=== PATIENT | male | born 1955 ===

== ENCOUNTER 2024-03-31 12:46 | Outpatient (AMB) | payer MEDICARE, OTHER, SELFPAY ==
--- NOTE | 2024-03-31 12:45 | MHC.OFFVIS ---
Intake Visit Reasons: lumbar radiculopathy HPI HPI lumbar radiculopathy: Details: 68-year-old male presenting with 2 month history of increasing lumbar radicular symptoms. Pain is described as greater than 6/10 in intensity and originates in the lower back, radiates down the right thigh and posterolateral aspect of the right calf. He has been engaged in physical therapy and has been taking Vicodin. So far he has not felt that the physical therapy has been very helpful. He is interested interventional therapies for his pain. [facility] Medical History (Updated 03/31/24 @ 12:57 by David Enciso MD) Lumbar radiculopathy Back pain Telehealth Telehealth Telehealth Platform: Telephone Location of provider rendering services: practice address Location of patient: address on file Patient Identification confirmed using: Name, : Yes Telehealth method: voice only Patient verbally consented to treatment: Yes Patient verbally consented to billing insurance company: Yes Minutes spent on Phone/Video with Pt.: 10 Results Reviewed Results Reviewed: Exam: MR Lumbar Spine (C-) CPT 41799 Room Description: [facility] 3T HISTORY: Back pain. Right lumbar radiculitis. TECHNIQUE: Multiplanar multisequence MRI of the lumbar spine without contrast. COMPARISON: 06/30/2022 FINDINGS: Multiple images are degraded by patient motion which diminishes detail, and interpretation was made in light of this technical confine. There is a mild rightward curvature of the lumbar spine. Straightening of the lumbar spine is noted on the sagittal images. No significant subluxation. The lumbar vertebral bodies are normal in height. No spondylolysis. 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 Loss of disc space height at L4-L5 and L5-S1 is again noted. Schmorl's nodes extend through the inferior endplates of L4 and L5, and there is Modic type I endplate change at L5-S1. Marginal osteophytes are also present at L4-L5 and L5-S1. The conus is poorly delineated due to motion. Subtle hazy STIR hyperintensity of the posterior paraspinal musculature. At T11-T12, there is a concentric disc-osteophyte complex with facet arthrosis. Mild central canal narrowing. Detail is degraded by motion. L1-L2: Concentric disc-osteophyte complex, facet arthrosis, and ligamentum flavum infolding. Mild acquired central canal narrowing. Moderate narrowing of the thecal sac in conjunction with epidural lipomatosis. No significant foraminal narrowing. L2-L3: Mild facet arthrosis and ligamentum flavum infolding. Subtle left central canal and left subarticular recess narrowing. No significant foraminal narrowing. L3-L4: Mild concentric disc bulge, facet arthrosis, and ligamentum flavum infolding. Minimal central canal narrowing. Minimal foraminal narrowing. L4-L5: Concentric disc-osteophyte complex and mild facet arthrosis. Minimal central canal narrowing. Mild foraminal narrowing (left greater than right). L5-S1: A concentric disc-osteophyte complex is slightly more pronounced posteriorly on the right. Right subarticular recess narrowing is more pronounced with crowding of and possible compression of the right S1 nerve roots. Mild foraminal narrowing. IMPRESSION: Degenerative changes of the lumbar spine superimposed upon a congenitally-narrowed spinal canal. Detail is degraded by motion. L5-S1, right subarticular recess narrowing is more pronounced with crowding of and possible compression of the right S1 nerve roots. This can be correlated with the patient's symptoms and neurological examination. Assessment & Plan Assessment & Plan (1) Lumbar radiculopathy: Code(s): M54.16 - Radiculopathy, lumbar region Category: Medical Plan 68-year-old male with history, physical exam and imaging findings consistent with right S1 radiculopathy with compression of the S1 nerve roots at the L5-S1 disc space. This has not responded to trial of conservative measures including oral medications and physical therapy. I offered him a right L5 TFESI as a next step in interventional management for his symptoms. Patient is in agreement with the plan. Justification for interventional therapy: Patient with average pain > 6/10 Patient has exhausted conservative therapy including physical therapy and oral medications. Coding Level of Care Code Tele New Pt Level 3 (39381) Diagnoses Lumbar radiculopathy M54.16
== END 2024-03-31 12:47 | disposition home or self-care (01) ==
LOC: HO.PMCPRC 12:46
PROVIDERS: PCP Nurse Practitioner Gerontology; Visit Provider Internal Medicine
DX: M54.16 Radiculopathy, lumbar region (principal)
CPT/HCPCS: 99441

== ENCOUNTER → 2024-03-31 12:46 | Outpatient (BNVA) | payer MEDICARE, OTHER, SELFPAY | PROVIDERS: PCP Nurse Practitioner Gerontology; Visit Provider Internal Medicine ==

== ENCOUNTER 2024-05-12 08:57 | Outpatient (REF) | payer MEDICARE, OTHER, SELFPAY | END 2024-05-12 08:58 | disposition home or self-care (01) | LOC: CF 08:57 | PROVIDERS: Visit Provider Internal Medicine | DX: M54.16 Radiculopathy, lumbar region (principal) | CPT/HCPCS: 64483; J1100; J2003; Q9967 ==

== ENCOUNTER 2024-05-12 11:32 | Outpatient (AMB) | payer MEDICARE, OTHER, SELFPAY ==
[2024-05-12 11:45] VITALS: BP 154/84; PULSE 98; RESP 16; O2SAT 99
--- NOTE | 2024-05-12 11:58 | MHC.OFFVIS ---
Vital Signs 05/12/24 11:45 05/12/24 12:03 BP 154/84 H 162/85 H Blood Pressure Location Lt brachial Lt brachial Position Sitting Sitting Respiration 16 17 Pulse 98 87 Pulse Source Pulse Oximeter Pulse Oximeter Pulse Oximetry (%) 99 97 Oxygen Delivery Method Room Air Room Air Comment Pre-op Post-op Intake Visit Reasons: Right L5 TFESI HPI HPI Right L5 TFESI: Details: Patient presents for scheduled procedure. Denies any recent cough, cold, infection, fever or other significant changes in medical history since last office visit. [facility] Medical History (Updated 03/31/24 @ 12:57 by David Enciso MD) Lumbar radiculopathy Back pain Office Procedures Details: Transforaminal epidural steroid injection, Right L5/S1 After obtaining written consent, pre-procedure blood pressure and heart rate were stable and recorded in the nursing record. The patient was placed in the prone position on the fluoroscopy table. The lumbosacral area was prepped with chloraprep, allowed to dry and draped in sterile fashion. Using fluoroscopy, the skin overlying our target was anesthetized with 0.5% lidocaine. A 22 gauge 3.5 inch spinal needle was advanced to the safe triangle in the upper pole of the right L5 foramen. No paresthesias were elicited with needle placement and aspiration was negative for blood and CSF. Correct needle position was confirmed with approximately 1 ml contrast dye (Omnipaque 180 mg/ml) injected under real-time fluoroscopy. No evidence of vascular or intrathecal uptake was seen and there was both epidural and peripheral spread of the contrast agent. 10 mg dexamethasone plus 1 ml containing 0.5% lidocaine was slowly injected. The needle was flushed and removed. the same procedure was repeated for the remaining levels. The skin was cleansed and a sterile bandages were applied. The patient tolerated the procedure well and no complications were encountered. Following the procedure the patient's vital signs were stable. The patient was discharged home in good condition with post-procedural instructions. Time Out: Immediately prior to the procedure, the following was verbally confirmed that there is a signed consent form and that the correct patient, planned procedure, site and side are consistent with documentation and that necessary equipment and/or blood products are available prior to the start of the case. Complications: none EBL: <5 cc 54757 - Lumbar/Sacral Procedure code (CPT) selection complete Assessment & Plan Assessment & Plan (1) Lumbar radiculopathy: Code(s): M54.16 - Radiculopathy, lumbar region Category: Medical Plan Patient is status post right L5-S1 TFESI. Patient tolerated procedure well and was discharged home in stable condition with discharge instructions. All questions were answered. We will follow-up via telephone or in clinic to assess response to therapy. A follow-up appointment was made during today's visit. Orders: Orders FL guidance in treatment room Today M54.16 - Radiculopathy, lumbar region Coding Level of Care Code Procedure Only Diagnoses Lumbar radiculopathy M54.16 CPT Codes Transforaminal Epidural Steroid Inj - TESI 3: 97235 - Lumbar/Sacral ([id number])
[2024-05-12 12:03] VITALS: BP 162/85; PULSE 87; RESP 17; O2SAT 97
== END 2024-05-12 12:02 | disposition home or self-care (01) ==
LOC: HO.PMCPRC 11:32
PROVIDERS: PCP Nurse Practitioner Gerontology; Visit Provider Internal Medicine
DX: M54.16 Radiculopathy, lumbar region (principal)
CPT/HCPCS: 64483

== ENCOUNTER 2024-06-17 09:04 | Outpatient (AMB) | payer MEDICARE, OTHER, SELFPAY ==
--- NOTE | 2024-06-17 09:05 | MHC.OFFVIS ---
Vital Signs 06/17/24 09:07 Height 5 ft 10 in Weight 172 lb BMI 24.7 BP 149/76 H Blood Pressure Location Lt brachial Position Sitting Respiration 16 Pulse 77 Pulse Source Pulse Oximeter Pulse Oximetry (%) 98 Oxygen Delivery Method Room Air Intake Visit Reasons: s/p right L5 TFESI Allergies No Known Allergies Allergy (Verified 06/17/24 09:08) Medication List - Last Reconciled 06/17/24 by Karen Swanson LPN HPI HPI s/p right L5 TFESI: Details: 68-year-old male who presents today to the office for a status post right L5 transforaminal epidural steroid injection. The patient reports 75-80% relief following the procedure. He has been doing stretching exercises at home. He states that his pain is manageable. He has only tried inversion table once but unable to continue due to time restrictions. He states that he has been using [employer] for his back pain, which is working well. He has a hot tub at home. Past procedures 05/12/24: Transforaminal epidural steroid injection, Right L5/S1: 75-80% relief. [facility] Medical History (Updated 03/31/24 @ 12:57 by David Enciso MD) Lumbar radiculopathy Back pain Review of Systems Const All systems reviewed & are unremarkable except as noted in HPI and below Physical Exam Vital Signs: Last Vital Signs Pulse 77 06/17/24 09:07 Resp 16 06/17/24 09:07 BP 149/76 H 06/17/24 09:07 Pulse Ox 98 06/17/24 09:07 Oxygen Delivery Method Room Air 06/17/24 09:07 BMI result Body Mass Index 24.7 General: Appears afebrile. Alert and oriented. Mood and affect appropriate. Follows and participates in conversation appropriately. Respiratory effort is unlabored. Able to transition from sit to stand unassisted. Ambulates with bilaterally normal heel strike and toe off. Results Reviewed Results Reviewed: No imaging is available for review. Assessment & Plan Assessment & Plan (1) Lumbar radiculopathy: Code(s): M54.16 - Radiculopathy, lumbar region Category: Medical Plan The patient will continue home exercises including stretching and swimming. Follow up as needed, if and when symptoms get worse again. Scribed for Dr. Julian by Himanshu Emily, caregivers non medical, on 06/17/2024. I, Dr. Julian, have personally reviewed and agree with the information entered by the scribe. Coding Level of Care Code Est Pt Level 3 (33489) Diagnoses Lumbar radiculopathy M54.16
[2024-06-17 09:07] VITALS: BP 149/76; PULSE 77; RESP 16; O2SAT 98; BMI 24.7
== END 2024-06-17 09:22 | disposition home or self-care (01) ==
PROVIDERS: PCP Nurse Practitioner Gerontology; Visit Provider Internal Medicine
DX: M54.16 Radiculopathy, lumbar region (principal)
CPT/HCPCS: 99213

== ENCOUNTER → 2024-06-17 09:04 | Outpatient (BNVA) | payer MEDICARE, OTHER, SELFPAY | PROVIDERS: PCP Nurse Practitioner Gerontology; Visit Provider Internal Medicine | DX: M54.16 Radiculopathy, lumbar region (principal) | CPT/HCPCS: 99212 ==